=== PATIENT | male | born 1990 | race Caucasian/White ===

== ENCOUNTER 2020-01-08 11:39 | Emergency (ER) | payer OTHER ==
[2020-01-08 11:44] VITALS: TEMP 98.7; BMI 30.7
[2020-01-08] MEDS ORDERED: ONDANSETRON 4 MG/2 ML VIAL IVPUSH ONE (11:51)
[2020-01-08] MEDS ORDERED: SODIUM CHLORIDE 0.9% 500 ML INFUS.BAG IV ONE (11:51)
[2020-01-08] MEDS ORDERED: ONDANSETRON 4 MG/2 ML VIAL ONE (11:57)
--- NOTE | 2020-01-08 12:05 | PDOC ---
History of Present Illness - General Chief Complaint: Nausea/Vomiting Stated Complaint: ABD PAIN, SORE THROAT, COUGH Time Seen by Provider: 01/08/20 11:51 - History of Present Illness Initial Comments: 01/08/20 12:04 CHIEF COMPLAINT: abd pain, vomiting, diarrhea, URI symptoms HISTORY OF PRESENT ILLNESS: 30 yo M with hx of gastritis presents to ED with URI symptoms, abdominal pain, vomiting, and diarrhea x 2 days. Patient reports that he had flu symptoms 2 weeks ago and the symptoms improved after he completed a course of medication, but then 2 days ago he developed a sore throat , congestion, cough, and since then has had 2 episodes vomiting, and 7 episodes of diarrhea. No recent travel or sick contacts. PAST MEDICAL HISTORY: Denies past medical history FAMILY HISTORY: Denies SOCIAL HISTORY: Denies tobacco, alcohol, illicit drug use. SURGICAL HISTORY: Denies ALLERGIES: primaquine REVIEW OF SYSTEMS General/Constitutional: Denies fever or chills. Denies weakness, weight change. HEENT: Denies change in vision. Denies ear pain or discharge. Denies sore throat. Cardiovascular: Denies chest pain or shortness of breath. Respiratory: Cough. Denies wheezing, or hemoptysis. Gastrointestinal: Vomiting and diarrhea x 2 days. Denies rectal bleeding. Genitourinary: Denies dysuria, frequency, or change in urination. Musculoskeletal: Denies joint or muscle swelling or pain. Denies neck or back pain. Skin and breasts: Denies rash or easy bruising. Neurologic: Denies headache, vertigo, loss of consciousness, or loss of sensation. Psychiatric: Denies depression or anxiety. PHYSICAL EXAM General Appearance: Well-appearing, appropriately dressed. No apparent distress. HEENT: EOMI, PERRLA, normal ENT inspection, normal voice, TMs normal, pharynx normal. No conjunctival pallor. No photophobia, scleral icterus. Neck: Supple. Trachea midline. No tenderness, rigidity, carotid bruit, stridor , lymphadenopathy, or thyromegaly. Respiratory/Chest: Lungs CTAB. No shortness of breath, chest tenderness, respiratory distress, accessory muscle use. No crackles, rales, rhonchi, stridor , wheezing, dullness Cardiovascular: RRR. S1, S2. No JVD, murmur, bradycardia, tachycardia. Vascular Pulses: Dorsalis-Pedis (R): 2+, Dorsalis-Pedis (L): 2+ Gastrointestinal/Abdominal: Normal bowel sounds. Abdomen soft, non-distended. No tenderness or rebound tenderness. No organomegaly, pulsatile mass, guarding , hernia, hepatomegaly, splenomegaly. Lymphatic: No adenopathy, tenderness. Musculoskeletal/Extremities: Normal inspection. FROM of all extremities, normal capillary refill. Pelvis Stable. No CVA tenderness. No tenderness to extremities, pedal edema, swelling, erythema or deformity. Integumentary: Appropriate color, dry, warm. No cyanosis, erythema, jaundice or rash Neurologic: spool fixer II-XII intact. Fully oriented, alert. Appropriate mood/affect. Motor strength 5/5. No appreciable EOM palsy, facial droop or sensory deficit. Past History - Past Medical History Allergies/Adverse Reactions: Allergies Allergy/AdvReac Type Severity Reaction Status Date / Time primaquine Allergy Verified 01/08/20 11:45 Home Medications: Ambulatory Orders Ibuprofen [Motrin] 400 mg PO QID PRN #10 tablet 01/20/12 Azithromycin [Zithromax] 250 mg PO DAILY #4 05/22/12 No Home Medications 0 dose .ROUTE UTDICT 05/22/12 Benzonatate 100 mg PO TID #20 capsule 01/08/20 Ondansetron HCl [Zofran] 4 mg PO TID PRN #20 tablet 01/08/20 COPD: No GI Disorders: Yes (gastritis) - Immunization History Td Vaccination: No - Psycho Social/Smoking Cessation Hx Smoking Status: Yes Smoking History: Never smoked Number of Cigarettes Smoked Daily: 1 Information on smoking cessation initiated: Yes Hx Alcohol Use: Yes (occasional) Drug/Substance Use Hx: No Substance Use Type: None *Physical Exam - Vital Signs Last Vital Signs Temp Pulse Resp BP Pulse Ox 98.7 F 122 H 19 130/78 99 01/08/20 11:43 01/08/20 11:43 01/08/20 11:43 01/08/20 11:43 01/08/20 11:43 ED Treatment Course - LABORATORY CBC & Chemistry Diagram: 01/08/20 12:15 01/08/20 12:15 Medical Decision Making - Medical Decision Making 01/08/20 13:37 30 yo M with hx of gastritis presents to ED with URI symptoms, abdominal pain, vomiting, and diarrhea x 2 days. -labs -zofran, fluids -CXR CXR negative. Patient reassessed after administration of meds. Patient reports symptoms have improved. Will treat symptomatically, dc with close f/u. Advised pt of signs and symptoms for return to ER; patient verbalized understanding and agrees to plan. Discharge - Discharge Information Problems reviewed: Yes Clinical Impression/Diagnosis: Viral syndrome Condition: Stable Disposition: HOME - Admission No - Additional Discharge Information Prescriptions: Benzonatate 100 mg PO TID #20 capsule Ondansetron HCl [Zofran] 4 mg PO TID PRN #20 tablet PRN Reason: Nausea And/Or Vomiting - Follow up/Referral Referrals: Emre Mejia MD [Staff Physician] - - Patient Discharge Instructions Patient Printed Discharge Instructions: DI for Viral Syndrome - Post Discharge Activity Work/Back to School Note: Back to Work
[2020-01-08 12:21] LABS: BASO % 0.6 % (0-2.0); EOS % 2.1 % (0-4.5); HEMATOCRIT 45.5 % (35.4-49); HEMOGLOBIN 15.1 GM/dL (11.7-16.9); LYMPH % 12.5 % (8-40); MCH 30.7 pg (25.7-33.7); MCHC 33.2 g/dl (32.0-35.9); MEAN CELL VOLUME 92.4 fl (80-96); MEAN PLT VOLUME 9.9 fl (7.5-11.1); MONO % 7.4 % (3.8-10.2); NEUT % 77.4 % (42.8-82.8); PLATELET COUNT 289 K/MM3 (134-434); RBC 4.92 M/mm3 (4.00-5.60); RDW 12.5 % (11.9-15.9); WHITE BLOOD COUNT 14.2 K/mm3 (4.0-10.0)
[2020-01-08 12:58] LABS: ALBUMIN 3.9 g/dl (3.4-5.0); BILIRUBIN,TOTAL 0.5 mg/dL (0.2-1); CALCIUM 8.7 mg/dL (8.5-10.1); CREATININE 0.8 mg/dL (0.55-1.3); TOT PROT 8.2 g/dl (6.4-8.2)
[2020-01-08 15:04] VITALS: BP 124/73; PULSE 79
== END 2020-01-08 14:05 | disposition home or self-care (01) ==
LOC: JER 11:39
PROC: 3E033GC Introduction of Other Therapeutic Substance into Peripheral Vein, Percutaneous Approach (ICD-10-PCS; principal; 2020-01-08)
DX: B34.9 Viral infection, unspecified (principal); Z88.8 Allergy status to other drugs, medicaments and biological substances; Z72.0 Tobacco use
CPT/HCPCS: 36415; 71046-TC-FY; 80053; 85025; 87070; 87804; 87880; 99284-25